=== PATIENT | female | born 1940 ===

== ENCOUNTER 2023-12-03 07:51 | Outpatient (RCR) | payer OTHER, SELFPAY | END 2023-12-03 23:59 | disposition home or self-care (01) | LOC: RPT 07:51 | PROVIDERS: ATTENDING PHYSICIAN Internal Medicine; FAMILY PHYSICIAN Family Medicine | DX: I89.0 Lymphedema, not elsewhere classified (principal); Z73.6 Limitation of activities due to disability | CPT/HCPCS: 97163; 97535 ==

== ENCOUNTER 2024-01-23 10:10 | Outpatient (RCR) | payer OTHER, SELFPAY | END 2024-01-23 13:14 | disposition home or self-care (01) | LOC: RPT 10:10 | PROVIDERS: ATTENDING PHYSICIAN Internal Medicine; FAMILY PHYSICIAN Family Medicine | DX: I89.0 Lymphedema, not elsewhere classified (principal); Z73.6 Limitation of activities due to disability | CPT/HCPCS: 97140; 97535 ==